=== PATIENT | female | born 1945 | race Caucasian/White ===

== ENCOUNTER → 2016-12-10 | Outpatient (CLI) | payer MEDICARE, BC ==
--- NOTE | 2016-12-11 14:09 | MM ---
Reason for exam: screening (asymptomatic). Last mammogram was performed 1 year ago. History: Patient is postmenopausal. Benign left mammotome panel of the left breast, December 16, 2012. Physical Findings: A clinical breast exam by your physician is recommended on an annual basis and results should be correlated with mammographic findings. MG 3D Screening Mammo W/Cad Bilateral CC and MLO view(s) were taken. Prior study comparison: December 08, 2015, bilateral MG 3d screening mammo w/cad. December 01, 2014, bilateral MG screening mammo w CAD. There are scattered fibroglandular densities. No suspicious abnormality. No significant changes when compared with prior studies. ASSESSMENT: Negative, BI-RAD 1 RECOMMENDATION: Routine screening mammogram of both breasts in 1 year.
== END ==
LOC: RADMAMWWP 15:18
PROVIDERS: ATTEND Surgery
DX: Z12.31 Encounter for screening mammogram for malignant neoplasm of breast (principal)
CPT/HCPCS: 77063; G0202

== ENCOUNTER 2017-08-08 09:07 | Day surgery (SDC) | payer MEDICARE, BC ==
[2017-08-06 11:04] VITALS: BMI 32.1
[~2017-08-08 09:07] MED LIST: LACTATED RINGERS 1,000 ML IV SCH; Pre Op ABX Message 1 EACH MISC MISCELLANE ONE
[2017-08-08 09:34] VITALS: TEMP 98.6
[2017-08-08] MEDS ORDERED: LIDOCAINE 2% (PF) 20 MG/ML 2 ML AMP INHALATION ONE (09:45)
[2017-08-08] MEDS ORDERED: LIDOCAINE 1% 20 ML VIAL (10MG/ML) FOR IV START INTRADERMA ONE (09:54)
[2017-08-08] MEDS ORDERED: ATROPINE SULFATE 0.4 MG/ML 20 ML VIAL IM ONE (10:09)
[2017-08-08] MEDS ORDERED: KETAMINE 10 MG/ML 20 ML VIAL ONE (10:38)
[2017-08-08] MEDS ORDERED: PROPOFOL 10 MG/ML 20 ML VIAL IV ONE (10:38)
[2017-08-08] MEDS ORDERED: GLYCOPYRROLATE 0.2 MG/ML 2 ML VIAL ONE (10:38)
[2017-08-08] MEDS ORDERED: LIDOCAINE 1% INJ 10MG/ML (20 ML MDV) ONE (10:38)
[2017-08-08] MEDS ORDERED: LIDOCAINE 2% INJ 20 MG/ML INTRATRACH ONE (11:01)
--- NOTE | 2017-08-08 11:24 | PCN ---
PROCEDURE NOTE PROCEDURE: Bronchoscopy, airway examination, therapeutic lavage, BAL right upper lobe, brushes and transbronchial biopsies right upper lobe. PREOPERATIVE DIAGNOSIS: Persistent abnormal infiltrate right upper lobe. POSTOPERATIVE DIAGNOSIS: Persistent abnormal infiltrate right upper lobe. OPERATORS: Dr. Sanders and Dr. Biggs. The procedure was done in room #1. There was informed consent and universal timeout. PARI MUTUEL CLERK provided unconscious sedation and general anesthesia. After the patient was adequately sedated and being fully monitored, the bronchoscope was inserted through the right nostril. It passed through the right nasopharynx into the oropharynx. The hypopharynx was identified and topicalized. The hypopharyngeal structures including anterior commissure, true cords, false cords, arytenoids, piriform sinuses, right and left vallecula and epiglottis all appeared normal. After topicalization, bronchoscope was pushed through the glottic opening into the trachea. Trachea appeared normal. Trachea agueda was sharp. The right and left mainstem were topicalized. Left upper lobe proper and its 2 segments, the lingula and its 2 segments and the left lower lobe and its 4 segments all seen completely normal. There was no dominant mass or tumor. There was minimal secretions. On the right side, the right upper lobe and its 3 segments, right middle lobe and its 2 segments and the right lower lobe and its 5 segments had similar findings of relatively normal airways. There was a bit more purulence on the right side, particularly in the right upper lobe. There was no dominant mass or tumor. There was no significant bronchitis. There was no significant erythema or hyperemia. Next, the bronchoscope was placed into the right upper lobe and under fluoroscopic guidance, we did brushes in the right upper lobe. We attempted to brush the area of the posterior segment. In addition, multiple transbronchial biopsies were done under fluoroscopic guidance. The patient tolerated that portion of the procedure well. Finally, a BAL was done of the right upper lobe. There was no significant bleeding. Once we ensured hemostasis, the bronchoscope was withdrawn. The patient will be recovered. The specimen was sent to the laboratory for analysis. MMODL / IJN: [id number] /
--- NOTE | 2017-08-08 11:36 | XR ---
EXAMINATION TYPE: XR chest 1V portable DATE OF EXAM: 08/08/2017 COMPARISON: NONE HISTORY: Post bronchoscopy. Evaluate for pneumothorax. TECHNIQUE: Single frontal view of the chest is obtained. FINDINGS: Patchy left basilar opacities partially atrophy compatible to overlying soft tissues altho ugh some retrocardiac opacity is also present. Vague right upper lobe patchy opacity is also seen. Re mainder the lungs are clear. There is no evidence of sizable postprocedural pneumothorax. Cardiomedia stinal silhouette is upper limits of normal. Curvilinear density at the gastroesophageal junction cou ld represent a small hiatal hernia or tortuosity of the descending thoracic aorta. Very less likely t his could represent a paraspinal mass. Correlate with any prior outside imaging. Osseous structures a ppear intact. IMPRESSION: 1. No postprocedural pneumothorax. 2. Patchy right upper lung opacity and left retrocardiac opacity are favored to represent infectious or inflammatory pneumonitis. 3. Curvilinear density at the right costophrenic angle could relate to tortuosity descending thoracic aorta, small hiatal hernia or very less likely paraspinal mass. Correlate with any prior outside wilfred ging. If there is further concern CT thorax could be performed.
[2017-08-08 11:50] VITALS: BP 140/71; PULSE 60; RESP 14
[2017-08-08] MEDS ORDERED: ALBUTEROL NEB (CONC) 2.5 MG/0.5 ML INHALATION SCH ×2 (12:00)
--- NOTE | 2017-08-08 13:54 | FL ---
EXAMINATION TYPE: FL bronchoscopy DATE OF EXAM: 08/08/2017 COMPARISON: NONE HISTORY: Right upper lobe lung mass Fluoroscopy support supplied to the referring clinician. See dictated report from pulmonary, single image documents the procedure
[2017-08-08 14:53] LABS: Appearance,BF Bloody
[2017-08-08 14:54] LABS: Nucleated Cells, Body Fluid 300 /uL; RBC, Body Fluid 57500 /uL
[2017-08-08 15:14] LABS: Mononuclear WBC,Body Fluid 19 %; Polynuclear WBC,Body Fluid 79 %; Total Cells Counted,Body Fluid 100
== END 2017-08-08 12:06 | disposition home or self-care (01) ==
LOC: ORWHC2ENDO 09:07
PROVIDERS: ATTEND Internal Medicine Critical Care Medicine
DX: J98.4 Other disorders of lung (principal); Z88.0 Allergy status to penicillin
CPT/HCPCS: 94640; 87798 ×3; 87496; 87498; 87529 ×2; 88104; 88108; 88305; 89050; 87252; 87502; 87634; 87070; 87205; 87116; 87102; 87206; 71045; 31628; 31624; J2001 ×3; J0461; J2704; 31623